=== PATIENT | male | born 1990 | race Asian ===

== ENCOUNTER 2018-06-02 15:28 | Emergency (ER) | payer OTHER | END 2018-06-02 16:52 | disposition home or self-care (01) | LOC: FTE 15:28 | DX: K21.9 Gastro-esophageal reflux disease without esophagitis (principal) | CPT/HCPCS: 99282; Z7502 ==

== ENCOUNTER 2018-07-30 18:22 | Emergency (ER) | payer OTHER ==
[2018-07-30] MEDS: ACETAMINOPHEN 325 MG TAB PO (20:18)
[2018-07-30] MEDS: IBUPROFEN 600 MG TAB PO (20:18)
== END 2018-07-30 21:21 | disposition home or self-care (01) ==
LOC: FTE 18:22
DX: J02.9 Acute pharyngitis, unspecified (principal)
CPT/HCPCS: 87880; 99283